=== PATIENT | male | born 1955 | race Caucasian/White ===

== ENCOUNTER 2024-10-30 06:21 | Observation (INO) ==
--- NOTE | 2024-09-25 14:34 | PAT Medication Instructions ---
Medication Instructions Date of Service September 25, 2024 Home Medications ibuprofen 200 mg tablet (Advil) 800 mg PO UD PRN ASK your surgeon for instructions ibuprofen 200 mg tablet (Advil) 800 mg PO UD PRN Other Notes NOTHING TO EAT OR DRINK AFTER MIDNIGHT. If you have any questions please call us at [phone] or [phone] or [phone] or [phone]
--- NOTE | 2024-10-02 11:27 | Anesthesiology Consultation ---
Date of Service October 02, 2024 Assessment & Plan (1) Encounter for pre-operative examination: - Outpatient joint assessment: Patient is currently scheduled for inpatient pathway. If re-evaluated and patient/surgeon requests outpatient pathway, patient is acceptable candidate for outpatient joint program from anesthesia standpoint pending surgeon's office assessment of pt motivation/support/completion of same day joint program preop requirements. Chart Review Chart Review: Acceptable Risk for Surgery and Patient seen in Pre Admission Testing Teaching & Discussion Pre-Anesthesia Teaching/Discussion Notes: Instructed NPO after midnight before surgery, except medications with 15 cc of water. Medication instructions provided according to the PAT guidelines. History Surgery Operation Date: 10/30/24 08:40 Proposed Procedures p Right Total Knee Arthroplasty - Leonardo Mcrae, Height/Weight Height: 5 ft 8 in Weight: 107.5 kg Allergies Allergy/AdvReac Type Severity Reaction Status Date / Time No Known Allergies Allergy Verified 09/18/24 15:09 Medications Home Medications Medication Instructions Recorded Confirmed Last Taken ibuprofen 200 mg tablet (Advil) 800 mg PO UD PRN Pain 09/18/24 09/18/24 Unknown Past Medical History Medical History (Updated 10/02/24 @ 11:28 by Livia Moreno PA-C) History of COVID-19 Suspects had it ~2021 per patient-denies hospitalization-denies residual issues History of kidney stones x1 passed own History of sciatica [place] (hard of hearing) Patient denies h/o stroke, seizures, heart attack, heart failure, DM, HTN, blood clots/DVTs or blood transfusions. Exercise / Class Metabolic Activity II 4-5 Yardwork/Stairs/Walk up hill (denies chest discomfort or shortness of breath with one flight of stairs) Past Surgical History Surgical History History of hand surgery (1991) Right History of tonsillectomy Past Anesthesia History No Hx of Anesthesia Complications and No Family Hx of Anesthesia Complications History of PONV No Hx of PONV and No Hx of Motion Sickness Social History Smoking Status: Smoker, status unknown Smoking cigarettes per day: hx occ cigar/not anymore Do You Dip or Chew Tobacco: Yes (daily/advised) Hx Alcohol Use: Yes alcohol intake frequency: holidays/special occasions only Hx Substance Use: No substance use type: does not use Review of Systems Snoring, denies witnessed apneas. Patient denies chest pain, shortness of breath, dyspnea on exertion, frequent reflux, fever, chills, cough, wheezing, or palpitations. Physical Exam Vital Signs Vitals BP 161/104 automatic left arm, manual re-check after patient rested was 141/92 P 58 TEMP 97.6 SP02 95% on RA RESP 18 Physical Patient resting comfortably in chair in no acute distress, alert and oriented, responding appropriately throughout visit Full cervical extension range of motion without pain TMD 3.5 finger breadths Mallampati Score 2 Dentition: chipped teeth, denies chipped or loose teeth, caps/crowns, implants or bridges Lungs: normal respiratory effort. Good air movement, clear throughout to auscul tation, no adventitious breath sounds Cardiac: regular rate and rhythm, no murmurs noted Carotid arteries: negative bruit bilat Lab Results Anesthesia Preop Results Results Anesthesia Widget: WBC 5.73 K/ul (4.8-10.8) 10/02/24 Hgb 13.6 g/dl (14.0-18.0) L 10/02/24 Hct 40.6 % (42.0-52.0) L 10/02/24 Plt 189 K/uL (130-400) 10/02/24 Na 140 mmol/L (136-145) 10/02/24 K 3.9 mmol/L (3.5-5.1) 10/02/24 Cl 105 mmol/L (98-107) 10/02/24 CO2 30 mmol/L (21-32) 10/02/24 BUN 15 mg/dl (6-23) 10/02/24 Creat 0.99 mg/dl (0.6-1.4) 10/02/24 Glucose Level 90 mg/dl (70-99(Fasting)) 10/02/24 PT 11.9 Seconds (9.0-12.0) 10/02/24 PTT 29 Seconds (21-31) 10/02/24 INR 1.1 (0.9-1.1) 10/02/24 Blood Type AB Positive 10/02/24 Antibody Screen NEGATIVE 10/02/24 Testing Electrocardiogram Date: 10/02/24 Sinus bradycardia, rate 54 bpm Chest X-Ray Date: 10/02/24 No acute process.
--- NOTE | 2024-10-25 07:39 | History & Physical Report ---
Date of Service October 25, 2024 Assessment & Plan (1) Osteoarthritis of right knee: We will proceed with a right total knee arthroplasty. Postoperatively, he will be started on aspirin for DVT prophylaxis and kept overnight in the hospital for postop medical management. He plans to use [facility] upon discharge. History of Present Illness Chief Complaint: Osteoarthritis of the right knee . Primary Care Provider: Frank Mitchell MD Ed is a pleasant 69-year-old male who has been dealing with chronic increasing right knee pain. X-rays and clinical examination have been diagnostic for advanced arthritis of the right knee. He has received injections at our office by another provider. Unfortunately, they are not helping. He is still dealing with a lot of knee pain. It is affecting his quality of life and his daily activities. After failing conservative treatment, he has elected to proceed with a right total knee arthroplasty. . Allergies Allergy/AdvReac Type Severity Reaction Status Date / Time No Known Allergies Allergy Verified 09/18/24 15:09 Home Medications Medication Instructions Recorded Confirmed Type ibuprofen 200 mg tablet (Advil) 800 mg PO UD PRN Pain 09/18/24 09/18/24 History Past Med/Surg History Problem List (Updated 10/25/24 @ 07:39 by Leonardo Mcrae DO) Osteoarthritis of right knee Encounter for pre-operative examination Medical History History of COVID-19 Suspects had it ~2021 per patient-denies hospitalization-denies residual issues History of sciatica [place] (hard of hearing) History of kidney stones x1 passed own Surgical History History of tonsillectomy History of hand surgery (1991) Right Social History Smoking Status: Smoker, status unknown Tobacco Type: Cigars and Smokeless Tobacco (Dip or Chew) Cigarettes Per Day: hx occ cigar/not anymore; Do You Dip or Chew Tobacco: Yes (daily/advised); Hx Alcohol Use: Yes Hx Substance Use: No Preferred Language: Macedonian Communication Ability: Effective Upsetter Helper Required: No Beliefs That Will Affect Care: None Current Living Situation: Spouse and Family Feels Safe at Home: Yes Assistive Devices: Glasses Review of Systems All systems reviewed & are unremarkable except as noted in HPI & below. Physical Exam On physical exam of the right knee, he has a slight varus deformity. He has tenderness palpation of the distal medial femoral condyle and over the medial joint line. Constitutional WD/WN, vitals as above Eyes PERRL, conjunctivae normal, anicteric sclerae ENMT external ear and nose normal, oropharynx normal Neck trachea midline, no thyromegaly Respiratory normal respiratory effort Cardiovascular RRR, no murmur, no edema Gastrointestinal (Abdomen) normal bowel sounds, soft, nontender, no hepatosplenomegaly Psychiatric A+Ox3, euthymic affect Results & Data Results & Data Laboratory Results . Diagnostic Findings X-rays of the right knee show advanced osteoarthritis with joint space narrowing, osteophyte formation, and [id number] articulation. . PG Care Time/CCT Total # of Minutes Spent Total Time Spent with Patient: Total time spent is greater than 50% in coordination of care (as documented) at patient's floor/unit and/or counseling patient: Coding Level of Care Code None Diagnoses Osteoarthritis of right knee M17.11
[2024-10-30] MEDS ORDERED: BUPIVACAINE 0.5 % 5 MG/1 ML PF 10ML VIAL ONE (06:34)
[2024-10-30] MEDS ORDERED: BUPIVACAINE 0.25% PF 30 ML VIAL ONE (06:34)
[2024-10-30] MEDS ORDERED: PROPOFOL IV EMULSION 10 MG/ML 100 ML VIAL IV ONE (06:43)
[2024-10-30] MEDS: LR 500ML BOLUS, THEN 15ML/HR IV SCH (07:10)
[2024-10-30] MEDS: FAMOTIDINE 20 MG TAB PO SCH (07:18)
[2024-10-30] MEDS: dexAMETHasone**PF** 10 MG/ML VIAL IV SCH (07:18)
[2024-10-30] MEDS: ACETAMINOPHEN 500 MG TAB PO SCH ×2 (07:18→14:00)
[2024-10-30] MEDS: LR 60ML/HR IV SCH (07:18)
[2024-10-30] MEDS: GABAPENTIN 300 MG CAP PO SCH (07:18)
[2024-10-30] MEDS ORDERED: MIDAZOLAM HCL 1 MG/ML 2ML VIAL ONE (07:25)
[2024-10-30] MEDS ORDERED: PROMETHAZINE HCL 6.25 MG in SODIUM CHLORIDE 0.9% 50 ML IV PRN (08:18)
[2024-10-30] MEDS ORDERED: ONDANSETRON INJ 2 MG/ML 2 ML VIAL IV PRN ×2 (08:18→12:01)
[2024-10-30] MEDS ORDERED: fentaNYL citrate PF 100 MCG/2 ML VIAL IV PRN (08:18)
[2024-10-30] MEDS ORDERED: ePHEDrine sulfate 50 MG/ML AMP IV PRN (08:18)
[2024-10-30] MEDS ORDERED: ATROPINE SULFATE 0.1 MG/ML 10ML SYR IV PRN (08:18)
--- NOTE | 2024-10-30 08:21 | History & Physical Bridge Note ---
Date of Service October 30, 2024 History & Physical Bridge Note I have examined the patient, reviewed the History & Physical and in the interval since the performance of the History & Physical I have noted the following changes of clinical significance: no changes noted
[2024-10-30] MEDS: TRANEXAMIC ACID 1,000 MG **IV Pre-op IV SCH (08:31)
[2024-10-30] MEDS: ceFAZolin 2000MG 2,000 MG/15 ML SYR IV SCH ×2 (08:56→17:12)
[2024-10-30] MEDS ORDERED: PROPOFOL IV EMULSION 10 MG/ML 20 ML VIAL IV ONE (09:02)
[2024-10-30] MEDS: ROPIV 0.5% 246mg, Ketorolac 30mg, EPINEPHrine 0.5mg in NSS INFIL SCH (09:15)
[2024-10-30] MEDS: ORTHO JOINT ANESTHETIC ONE (09:15)
[2024-10-30] MEDS: TRANEXAMIC ACID 1,000 MG **IV Intra-op IV SCH (10:04)
--- NOTE | 2024-10-30 10:22 | Operative Report ---
PG Post Operative Report Pre & Post Diagnosis Operation Date: 10/30/24 08:40 Pre-Op Diagnosis: Right Knee Arthritis Post-Op Diagnosis: Right Knee Arthritis I identified the patient and participated in the time-out.: Yes Procedure Operation Date: 10/30/24 08:40 Actual Procedures p Right Total Knee Arthroplasty(Right) - Leonardo Mcrae DO Surgeon Leonardo Mcrae DO Recreational Vehicle Repairer Tejas Cuellar PA-C Estimated Blood Loss 50 Findings Consistent with Post-Op Diagnosis Specimens Right femoral and tibial bone Description of Procedure Implants used: I used a Marivel Persona total knee arthroplasty system with a size 9 PS standard femur, F tibia, 34 oval patella, and a size 12 CPS polyethylene bearing. All components were cemented in place with Biomet cement. Ed arrived [facility] for the above procedure. He was seen in the preoperative holding area and the operative extremity was identified and signed. He was given a preoperative antibiotic, TXA, a spinal anesthetic and an adductor nerve block. He was taken back to the operating room and laid on the table in supine position. He was given basic sedation. The operative knee was then prepped and draped in sterile fashion. A timeout was done, and the patient and the operative extremity was properly identified. A midline incision was made directly over the patella. Dissection was taken down to the extensor mechanism. A medial parapatellar arthrotomy was used. The medial retinaculum was released and the fat pad was mostly excised. The knee was flexed and the ACL, PCL, and meniscus were removed. A drill was sent down the center of the femoral canal followed by an intramedullary marylou. Off that marylou a distal femoral cutting block was placed. 9 mm was resected off the distal femur at 5 of valgus. A posterior referencing AP sizing guide was then placed on the distal femur. The femur measured to be a size 9. 2 drill holes were placed in 3 of external rotation. A 4-in-1 cutting block was then impacted into place. Anterior, posterior, and chamfer cuts were then made. The proximal tibia was then exposed. An external tibial alignment guide was placed. A tibial cut guide was then anchored in place and the proximal tibia was then resected. The posterior aspect of the knee was then opened up and any additional meniscus fragments and osteophytes were removed. The tibia measured to be a size F. The tibial plate was then placed in the appropriate rotation and the tibia was drilled and punched. Trial components were then placed. I used a size 12 CPS polyethylene insert. The knee was brought through a full range of motion and felt to be stable. The peg holes for the femoral component were then drilled. The patella was then everted and 9 mm was resected off the posterior aspect of the patella. The patella measured to be a size 34 oval. 3 peg holes were then drilled. A trial patella was placed. The knee was once again brought through a full range of motion and felt to be stable. Trial components were then removed. The surrounding soft tissues were injected with 100 cc of an orthopedic pain control cocktail. All components were then cemented into place with Biomet cement. The final polyethylene insert was then snapped into place. Once cement was dry the tourniquet was deflated. Hemostasis was obtained. A dilute betadyne lavage was then done for 3 minutes. The joint was then irrigated with normal saline solution. The medial parapatellar arthrotomy was then closed with #1 Vicryl suture. The skin was closed with 2-0 Vicryl, 3-0V lock suture, and manda. A soft compressive dressing was placed. He was then transferred to a hospital bed and taken to the postanesthesia care unit in stable condition. He tolerated the procedure well. Tejas Cuellar PA-C, was present for the entire procedure. He was critical for patient positioning, prepping, draping, retraction exposure, wound closure and application of sterile dressing. I attest to the content of the Intraoperative Record and any orders documented therein. Any exceptions are noted below.
--- NOTE | 2024-10-30 10:56 | XRay Report ---
XR knee RT 1 or 2V routine CLINICAL HISTORY: Surgical Post Op COMPARISON: None FINDINGS: Right knee prosthesis shows no hardware complication. There is expected soft tissue gas. IMPRESSION: Unremarkable postoperative exam. ACT 112: Negative or not required by law. Electronically signed by: Darwin Daniels M.D. 10/30/2024 10:54 AM
[2024-10-30] MEDS ORDERED: NALOXONE HCL 0.4 MG/1 ML VIAL/CARP IV PRN (12:01)
[2024-10-30] MEDS ORDERED: METOCLOPRAMIDE HCL INJ 5 MG/ML 2 ML VIAL IV PRN (12:01)
[2024-10-30] MEDS ORDERED: bisacodyL 10 MG SUPP PR PRN (12:01)
[2024-10-30] MEDS ORDERED: MAGNESIUM HYDROXIDE SUSP 30 ML UDC PO PRN (12:01)
[2024-10-30] MEDS: SODIUM CHLORIDE 0.9% 1,000 ML IV SCH (12:38)
[2024-10-30] MEDS: KETOROLAC TROMETHAMINE 15 MG/ML VIAL IV SCH (12:38)
[2024-10-30] MEDS: oxyCODONE HCL IR 5 MG TAB (IMMEDIATE RELEASE) PO PRN (15:05)
--- NOTE | 2024-10-30 16:00 | Anesthesiology Progress Note ---
Date of Service October 30, 2024 Anesthesia Post Procedure Vital Signs Vital Signs: Temp Pulse Pulse Resp BP BP Pulse Ox 10/30/24 15:58 36.6 C 75 18 166/89 H 95 10/30/24 14:44 36.8 C 70 18 157/86 H 95 10/30/24 14:11 37 C 71 18 150/92 H 167/84 H 96 10/30/24 13:14 37 C 64 16 144/88 H 94 10/30/24 12:01 37 C 61 18 162/84 H 97 10/30/24 11:30 36.5 C 54 L 12 119/81 93 10/30/24 11:20 55 L 14 131/82 94 10/30/24 11:10 55 L 12 131/81 94 10/30/24 11:00 36.4 C L 54 L 12 145/84 H 93 10/30/24 10:50 53 L 16 132/78 98 10/30/24 10:40 56 L 14 141/89 H 97 10/30/24 10:30 55 L 12 122/74 99 10/30/24 10:21 36 C L 58 L 14 116/73 94 10/30/24 06:52 36.6 C 61 18 174/112 H 97 O2 Del Method O2 Flow Rate 10/30/24 15:58 Room Air 10/30/24 14:44 Room Air 10/30/24 14:11 Room Air 10/30/24 13:14 Room Air 10/30/24 12:01 Room Air 10/30/24 11:30 Room Air 10/30/24 11:20 Room Air 10/30/24 11:10 Room Air 10/30/24 11:00 Room Air 10/30/24 10:50 Oxymask 3 10/30/24 10:40 Oxymask 4 10/30/24 10:30 Oxymask 4 10/30/24 10:21 Oxymask 8 10/30/24 06:52 Room Air Pain Intensity Right Knee: Pain Intensity: 8 Transfer of Care Handoff Completed per policy Notes Mental Status: alert / awake / arousable and participated in evaluation Patient Amnestic to Procedure: Yes Nausea / Vomiting: adequately controlled Pain: adequately controlled Airway Patency, RR, SpO2: stable & adequate BP & HR: stable & adequate Hydration State: stable & adequate Neuraxial Anesthesia: was administered and sensory block is resolving Anesthetic Complications: no major complications apparent and Pt Satisfied with anesthetic care
[2024-10-30 20:09] VITALS: RESP 16
[2024-10-30] MEDS: DOCUSATE SODIUM 100 MG CAP PO SCH (21:50)
[2024-10-30] MEDS: ASPIRIN 81 MG ECTAB PO SCH (21:50)
[2024-10-30] MEDS: SENNA 8.6 MG TAB PO SCH (21:50)
[2024-10-31] MEDS: HYDROmorphone INJ 0.5 MG/0.5 ML SYR IV PRN (07:23)
[2024-10-31] MEDS: MULTIVITAMIN TAB PO SCH (07:25)
[2024-10-31] MEDS: dexAMETHasone 4 MG TAB PO SCH (07:25)
[2024-10-31 07:51] VITALS: BP 132/84; PULSE 59; TEMP 98.1; O2SAT 96
--- NOTE | 2024-10-31 12:55 | Orthopedic Progress Note ---
Date of Service October 31, 2024 Assessment & Plan (1) Status post right knee replacement: Assessment: Status post right total knee arthroplasty. Plan: Overall, he is doing quite well today with good pain control right knee. He will work with physical therapy later this morning work on ambulation and range of motion exercises. He was started on aspirin for DVT prophylaxis. He can be discharged home later this morning pending formal physical therapy evaluation recommendation. His dressings can be changed after his completion with physical therapy and prior to discharge. Discharge medication instructions were given to the patient with clear understanding. He will follow-up with orthopedics in 2 to 3 weeks for continued postoperative management or sooner if needed. Subjective . Eduardo was seen this morning resting comfortably no apparent distress. He notes that his pain is well-controlled to the right knee. He has been up and out of bed with no significant issues today. He has yet to work out with physical therapy this morning. He denies any concerns with his surgical incision site. Denies any active bleeding, discharge, or signs of infection. Denies any other concerns today. Review of Systems All systems reviewed & are unremarkable except as noted in HPI & below. Physical Exam . On physical examination of the right knee, dressings are clean, dry, intact with no signs of active bleeding, discharge, or signs infection. His leg is on full extension. He has limited range of motion and strength secondary postoperative stiffness soreness. Calf soft nontender to palpation. Negative Homans' sign. Intact plantarflexion dorsiflexion of the right ankle. +2 DP and PT pulses. Less than 2-second capillary refill. Normal sensation. Neurovascular intact. Results & Data Results & Data Laboratory Results . Diagnostic Findings . Knee X-Ray 10/30/24 10:24 XR knee RT 1 or 2V routine CLINICAL HISTORY: Surgical Post Op COMPARISON: None FINDINGS: Right knee prosthesis shows no hardware complication. There is expected soft tissue gas. IMPRESSION: Unremarkable postoperative exam. ACT 112: Negative or not required by law. Electronically signed by: Darwin Daniels M.D. 10/30/2024 10:54 AM PG Care Time/CCT Total # of Minutes Spent Total Time Spent with Patient: Total time spent is greater than 50% in coordination of care (as documented) at patient's floor/unit and/or counseling patient: Coding Level of Care Code 47510 Post Operative Follow-Up Diagnoses Status post right knee replacement Z96.651
--- NOTE | 2024-10-31 12:57 | Discharge Summary ---
Date of Service October 31, 2024 Admission HPI (Per Admitting) Ed is a pleasant 69-year-old male who has been dealing with chronic increasing right knee pain. X-rays and clinical examination have been diagnostic for advanced arthritis of the right knee. He has received injections at our office by another provider. Unfortunately, they are not helping. He is still dealing with a lot of knee pain. It is affecting his quality of life and his daily activities. After failing conservative treatment, he has elected to proceed with a right total knee arthroplasty. . Admission Exam (Per Admitting) On physical exam of the right knee, he has a slight varus deformity. He has tenderness palpation of the distal medial femoral condyle and over the medial joint line. Principal Diagnosis Same as "Discharge Diagnosis" noted below under Discharge Instructions. Discharge Exam . On physical examination of the right knee, dressings are clean, dry, intact with no signs of active bleeding, discharge, or signs infection. His leg is on full extension. He has limited range of motion and strength secondary postoperative stiffness soreness. Calf soft nontender to palpation. Negative Homans' sign. Intact plantarflexion dorsiflexion of the right ankle. +2 DP and PT pulses. Less than 2-second capillary refill. Normal sensation. Neurovascular intact. Discharge Data Procedures Performed Operation Date: 10/30/24 08:40 Actual Procedures p Right Total Knee Arthroplasty(Right) - Leonardo Mcrae DO Ordered Studies 10/30/24 05:00 US - OR guided needle placemen Routine Hospital Course (1) Status post right knee replacement: On October 30, 2024 Edward arrived at [facility] underwent a right total knee arthroplasty performed by Dr. Mcrae with no complications. He had a spinal anesthetic. Postoperatively, he was started on aspirin for DVT prophylaxis and transferred to the general orthopedic floor in stable condition. His hospital course was uneventful. On postoperative day #1, his vital signs were stable and his pain is well-controlled. He participated well physical therapy working on ambulation range of motion exercises. He was then discharged home in stable condition. He will follow-up with orthopedics in 2 to 3 weeks for continued postoperative management or sooner if needed. PG Care Time/CCT Total # of Minutes Spent Total Time Spent with Patient: Total time spent is greater than 50% in coordination of care (as documented) at patient's floor/unit and/or counseling patient: Discharge Plan Discharge Items Patient Disposition: Home - Home Health Services Reason For Visit: Right Knee Arthritis Discharge Diagnosis: Same Activity: Per Instructions section Non-emergency contact: Surgeon Call non-emergency contact if: your temperature is above 101.5, your wound has increased redness, your wound has increased drainage and your wound pain has increased Follow-up/Referrals: Frank Mitchell MD [Primary Care Provider] - Diet: Regular Addtl Attending Provider Instructions: Activity and Therapy Recommendations: * If you are using [facility] then therapy will be provided at your home until they feel you have accomplished all of your goals. * If you are using [facility] then Physical Therapy will be provided until they feel you are ready to start Outpatient Physical Therapy. * If you are not using home therapy then Outpatient Physical Therapy should start about 3-5 days from your day of surgery. Therapy will last about 6-10 weeks * It is important not to put a pillow under your knee when you are relaxing or sleeping. It is just as important to make sure you are getting your knee perfectly straight as it is to regain your knee bend. * You were shown a series of exercises in the hospital. Do these exercises three times each day including the exercises you were shown in physical therapy. * Get up and walk several times each day. For the first four weeks, try not to stand or walk for more than one hour at a time. If you do stand or walk for more than one hour, you will not hurt anything, but your leg will likely swell. * As you feel comfortable, you may change from the walker or crutches to a cane and then to independent walking. Medications: * Narcotic You will likely be sent home from the hospital with a prescription for the narcotic pain medication that worked best throughout your stay. * Cefadroxil -take the antibiotic twice a day for 10 days to help prevent infection. * Aspirin Most patients will be required to take Aspirin 81mg twice a day for 6 weeks after surgery. This is obtained [id number] and a prescription is not necessary. * Other medications may be prescribed for specific circumstances. If you have any questions, please call the office at . * Resume previous home medications unless otherwise instructed TEDs/Elastic Stockings: The white elastic stockings help limit swelling and prevent blood clots from forming in your legs.~ The more you wear them, the more they work. Wear them for 2 weeks. Dressing Care: The dressing can be changed after physical therapy on postop day #1. Do not peel off the Arcadia zip skin closure. This is to be left on for 2 to 3 weeks. Daily dry dressing changes for a few days, especially if the incision is still draining some. If the incision is not draining then you may leave the Arcadia zip skin closure open to air If there is a little bit of drainage or if the zip skin closure is getting stuck on your clothing then cover the incision with a dry dressing. The Buddy zip skin closure will be removed at your 2 week follow-up appointment. Showering: You may shower 5 days from the day of surgery as long as the incision is no longer draining. You may shower with the Buddy zip skin closure exposed. Let soapy water run over the Arcadia zip skin closure and pat it dry. Do not scrub or soak the incision. Diet: You may resume your previous diet. Things To Watch For: * Drainage from the incision site that occurs more than one week after your surgery. * Increased redness at the incision site. * Fever above 102 degrees Fahrenheit. * Unusual chest pain or shortness of breath. * Call [facility] at with any of the above problems Follow-Up Visit: Follow-up with Dr. Mcrae's office 2-3 weeks after your day of surgery. We will remove your manda and answer any questions. If you have any additional questions or concerns, Dr Mcrae is usually in the office at the same time and will be available An appointment was probably scheduled when you signed-up for surgery in the office. If you have any questions call Office Instructions: More detailed instructions as well as Frequently Asked Questions were provided in a folder by our office when you signed-up for surgery. Please review these instructions when you get home. If you have any further questions or concerns, please feel free to call the office at [phone] Pending Studies at Discharge: No Stand-Alone Forms: My [facility] Dining Secretary, Pain - Opioid Pain Management, Smoking Cessation Medications and DC Order Prescriptions: New aspirin 81 mg Tablet,Delayed Release (Dr/Ec) 81 mg PO BID 42 Days Qty: 0 0RF cefadroxil 500 mg capsule 500 mg PO BID 10 Days Qty: 20 0RF oxycodone 5 mg tablet 5 mg PO Q6H PRN (Reason: pain) Qty: 30 0RF Continued acetaminophen 500 mg Tablet 1,500 mg PO BID PRN (Reason: Pain) Held ibuprofen [Advil] 200 mg Tablet 800 mg PO UD PRN (Reason: Pain) Hold Instructions: Resume on 12/13/24. Ramirez/Other Patient Handouts: DVT Post Op Prevention Admission Data Admit Date/Time: 10/30/24 10:24 Attending Provider: Leonardo Mcrae Admit Provider: Leonardo Mcrae Primary Care Provider: Frank Mitchell Other Providers: Jhoan Young joseph Other Interventions: Discharge Summary Assessment (RN) Last Done: 10/31/24 09:30
== END 2024-10-31 11:41 | disposition home health service (06) ==
LOC: 3N 06:21 → ASU 06:21